=== PATIENT | male | born 1960 | race Asian ===

== ENCOUNTER 2017-12-20 12:28 | Emergency (ER) | payer OTHER ==
[~2017-12-20] VITALS: Ht 185.4 cm; Wt 79.4 kg
[2017-12-20 12:43] VITALS: TEMP 100.6
[2017-12-20 13:14] LABS: PLATELET COUNT 185 K/uL (142-355)
[2017-12-20 13:17] LABS: POTASSIUM 3.7 mmol/L (3.6-5.2)
[2017-12-20 14:26] VITALS: BP 160/91
== END 2017-12-20 14:32 | disposition home or self-care (01) ==
LOC: ED 12:28
PROVIDERS: Emergency Medicine
DX: M25.562 Pain in left knee (principal); M25.462 Effusion, left knee
CPT/HCPCS: 36415; 80053; 85027; 85379; 99283